=== PATIENT | female | born 1955 | race Caucasian/White ===

== ENCOUNTER 2020-07-16 06:54 | Day surgery (SDC) | payer OTHER ==
[~2020-07-16] VITALS: Ht 160 cm; Wt 91.2 kg
[~2020-07-16 06:54] MED LIST: ANASTROZOLE1 MG PO; ASPIRIN EC325 MG PO; ATIVAN0.5 MG PO; AVAPRO150 MG PO; BASAGLAR K100 UNIT/1 SC; CEFADROXIL500 MG PO; COREG12.5 MG PO; COZAAR50 MG PO; GLUCOPHAGE1000 MG PO; GLYBURIDE 6 MG PO; GLYBURIDE MICRON3 MG PO; LACTINEX1 EACH PO; LASIX40 MG PO; LEVSIN-SL0.125 MG SL; MICRO-K10 MEQ PO; ONDANSETRON ODT8 MG PO; OXAYDO5 MG PO; OXY-IR 5MG5 MG PO; PRILOSEC20 MG PO; SINEQUAN50 MG PO; VALSARTAN160 MG PO; VITAMIN D-32000 UNI1 PO; VOLTAREN **OUT75 MG PO; ZESTRIL5 MG PO; ZOLOFT50 MG PO
[2020-07-16] MEDS ORDERED: FASLODEX250 MG/5 M IM (07:26)
[2020-07-16 07:47] LABS: HCT 41.4 % (37.0-47.0); HGB 13.8 g/dl (12.5-16.0); MCH 27.6 pg (25.0-31.0); MCHC 33.3 g/dL (32.0-36.0); MCV 82.8 fL (78.0-100.0); RDW 14.1 % (11.5-14.0); WBC 6.7 K/uL (4.0-10.5)
[2020-07-16 08:19] LABS: BUN/CREAT RATIO (CALC) 33.3 RATIO; CREATININE 0.54 mg/dL (0.51-0.95); POTASSIUM 4.2 mmol/L (3.5-5.1)
[2020-07-16] MEDS ORDERED: OXY-IR 5MG5 MG PO (09:48)
[2020-07-16] MEDS ORDERED: ONDANSETRON ODT8 MG PO (09:48)
== END 2020-07-16 13:54 | disposition home or self-care (01) ==
LOC: FSDC 06:54 → FMS 06:54 → FAS 06:54 → FMS 08:00 → EDSTATUS 08:00 → FSDC 13:54 → FAS 13:54
PROVIDERS: Surgery
DX: N60.11 Diffuse cystic mastopathy of right breast (principal); C50.912 Malignant neoplasm of unspecified site of left female breast; I25.10 Atherosclerotic heart disease of native coronary artery without angina pectoris; I11.0 Hypertensive heart disease with heart failure; I50.9 Heart failure, unspecified; K21.9 Gastro-esophageal reflux disease without esophagitis; E11.9 Type 2 diabetes mellitus without complications; D50.9 Iron deficiency anemia, unspecified; K44.9 Diaphragmatic hernia without obstruction or gangrene; Z88.8 Allergy status to other drugs, medicaments and biological substances; Z88.2 Allergy status to sulfonamides; Z88.6 Allergy status to analgesic agent; Z88.1 Allergy status to other antibiotic agents; Z79.84 Long term (current) use of oral hypoglycemic drugs; Z79.899 Other long term (current) drug therapy; I25.2 Old myocardial infarction; Z98.890 Other specified postprocedural states; Z90.49 Acquired absence of other specified parts of digestive tract; Z98.51 Tubal ligation status; Z92.21 Personal history of antineoplastic chemotherapy; Z95.5 Presence of coronary angioplasty implant and graft; Z87.891 Personal history of nicotine dependence; Z20.822 Contact with and (suspected) exposure to COVID-19
CPT/HCPCS: 36415; 80048; J0690; J0735; J1100; J1885; J2250; J2405; J2550; J2704; J2710; J3010; J3490; J7120; U0002

== ENCOUNTER 2021-05-05 16:48 | Emergency (ER) | payer OTHER ==
[~2021-05-05 16:48] MED LIST changes: +FASLODEX250 MG/5 M IM
[2021-05-05 18:12] LABS: BASOPHIL 0.5 % (0-2); EOSINOPHIL 4.1 % (0-7); HCT 35.4 % (37.0-47.0); HGB 11.4 g/dl (12.5-16.0); LYMPHOCYTE 14.1 % (15-48); MCH 26.2 pg (25.0-31.0); MCHC 32.2 g/dL (32.0-36.0); MCV 81.4 fL (78.0-100.0); MONOCYTE 6.4 % (0-12); MPV 9.6 fL (6.0-9.5); NEUTROPHIL 74.3 % (41-80); NRBC 0; PLT 214 K/uL (150-400); RBC 4.35 M/uL (4.20-5.40); RDW 14.6 % (11.5-14.0); WBC 6.5 K/uL (4.0-10.5)
[2021-05-05 18:34] LABS: ALBUMIN 3.1 g/dL (3.4-5.0); BILIRUBIN - TOTAL 0.2 mg/dL (0.2-1.0); BUN/CREAT RATIO (CALC) 19.7 RATIO; CREATININE 0.71 mg/dL (0.51-0.95); GLOBULIN (CALCULATION) 4.3 g/dL; POTASSIUM 3.7 mmol/L (3.5-5.1); TOTAL PROTEIN 7.4 g/dL (6.4-8.2)
[2021-05-05] MEDS ORDERED: VENTOLIN HFA IN18 GM INH (21:01)
== END 2021-05-05 22:00 | disposition home or self-care (01) ==
LOC: FER 16:48
PROVIDERS: Emergency Medicine
DX: R06.2 Wheezing (principal); R07.89 Other chest pain; R79.89 Other specified abnormal findings of blood chemistry; I10 Essential (primary) hypertension; I25.10 Atherosclerotic heart disease of native coronary artery without angina pectoris; I25.2 Old myocardial infarction; E11.9 Type 2 diabetes mellitus without complications; Z88.5 Allergy status to narcotic agent; Z88.8 Allergy status to other drugs, medicaments and biological substances; Z88.1 Allergy status to other antibiotic agents
CPT/HCPCS: 36415; 71045; 80053; 83880; 84484; 85025; 93005; 94640; J3490; J7512